=== PATIENT | male | born 1980 | race Caucasian/White ===

== ENCOUNTER 2018-10-18 01:28 | Emergency (ER) | payer OTHER ==
[2018-10-18] MEDS: morphine LIQ (10 MG/5 ML) CUP PO (04:12)
[2018-10-18] MEDS: IBUPROFEN 600 MG TAB PO (04:13)
== END 2018-10-18 05:33 | disposition home or self-care (01) ==
LOC: FTE 01:28
DX: S06.0X0A Concussion without loss of consciousness, initial encounter (principal); V18.4XXA Pedal cycle driver injured in noncollision transport accident in traffic accident, initial encounter
CPT/HCPCS: 70450; 72125; 73030-50; 99284-25